=== PATIENT | male | born 1990 | race Caucasian/White ===

== ENCOUNTER 2023-05-01 09:48 | Emergency (ER) | payer OTHER ==
[~2023-05-01] VITALS: Ht 185.4 cm; Wt 95.3 kg
[2023-05-01 10:07] VITALS: BP 135/86; PULSE 98; RESP 16; TEMP 98.5; O2SAT 98
[2023-05-01] MEDS ORDERED: KETOROLAC 60 MG/2 ML VIAL IM ONE (11:20)
[2023-05-01] MEDS ORDERED: ONDANSETRON 4 MG ODT PO ONE (11:20)
[2023-05-01] MEDS ORDERED: IBUP-2213 PO (11:40)
[2023-05-01] MEDS ORDERED: ONDA8TAB87 PO (11:40)
[2023-05-01 11:49] VITALS: BP 135/86; PULSE 98; RESP 16; TEMP 98.5; O2SAT 98
== END 2023-05-01 11:49 | disposition home or self-care (01) ==
LOC: MED 09:48
DX: R11.2 Nausea with vomiting, unspecified (principal); R19.7 Diarrhea, unspecified; R10.9 Unspecified abdominal pain; Z79.899 Other long term (current) drug therapy
CPT/HCPCS: 96372; 99283; J1885; Q0162